=== PATIENT | female | born 1940 | race Hispanic/Latino ===

== ENCOUNTER 2018-05-05 08:06 | Day surgery (SDC) | payer MEDICARE, BC ==
[2018-05-05 08:32] VITALS: BMI 22.3
--- NOTE | 2018-05-05 09:39 | CP.SDSHP ---
Same Day Surgery H & P - History Proposed Procedure: EGD Pre-Op Diagnosis: Nausea. Epigastric pain - Previous Medical/Surgical History Cardiac: Hypertension, Other (hyperlipidemia) Misc: Other (Renal cysts, diverticulosis, colon polyps) Previous Surgical History: Cholecystectomy - Allergies Allergies: Allergies Penicillins Allergy (Verified 05/05/18 08:32) RASH - Physical Exam Vital Signs: Vital Signs 05/05/18 08:34 Temperature 98.4 F Pulse Rate 68 Respiratory 16 Rate Blood Pressure 140/67 Mental Status: Alert & Oriented x3 Neuro: WNL Heart: WNL Lungs: WNL GI: WNL - Impression Impression: Persistent nausea. epigastric pain Pt. Evaluated Today:Candidate for Anesthesia & Procedure: Yes - Date & Time Date: 05/05/18 Time: 09:39 Short Stay Discharge - Short Stay Discharge Admitting Diagnosis/Reason for Visit: LEFT LOWER QUADRANT PAIN / NAUSEA Disposition: HOME/ ROUTINE
[2018-05-05] MEDS ORDERED: Propofol 10 mg/ml Inj (20 ML) ONE (09:40)
[2018-05-05] MEDS ORDERED: Pantoprazole 40 mg EC Tab PO STA (09:40)
[2018-05-05] MEDS ORDERED: Lactated Ringer's 500 ML IV ONE ×2 (09:41)
[2018-05-05 09:46] VITALS: O2SAT 100
[2018-05-05 10:16] VITALS: TEMP 97.5
[2018-05-05 11:19] VITALS: BP 130/65; PULSE 73; RESP 15
== END 2018-05-05 11:16 | disposition home or self-care (01) ==
LOC: C.ENDO 08:06
PROVIDERS: ATTEND Internal Medicine Gastroenterology
DX: K21.0 Gastro-esophageal reflux disease with esophagitis (principal); K44.9 Diaphragmatic hernia without obstruction or gangrene
CPT/HCPCS: 43239; 88305; 88342; J2704; J7120